=== PATIENT | male | born 1965 | race Caucasian/White ===

== ENCOUNTER 2016-09-30 07:50 | Emergency (ER) | payer OTHER ==
[~2016-09-30 07:50] MED LIST: BENZONATATE PO; CIPRO250 MG PO; FLOMAX0.4 M1 PO; INVOKANA300 MG PO; LIPITOR40 MG PO; MEDROL4 MG/DOSE- PO; METFORMIN HCL500 M1 PO; PAXIL40 MG PO; PIOGLITAZONE30 MG PO; [UNRECOGNIZED DRUG - OTHER] PO; [UNRECOGNIZED DRUG - REMARK]
[2016-09-30] MEDS ORDERED: VICODIN (07:56)
== END 2016-09-30 09:41 | disposition home or self-care (01) ==
LOC: SED 07:50
DX: H61.23 Impacted cerumen, bilateral (principal); E11.9 Type 2 diabetes mellitus without complications; Z79.899 Other long term (current) drug therapy
CPT/HCPCS: 69209; 99282